=== PATIENT | male | born 1980 | race Hispanic/Latino ===

== ENCOUNTER 2020-10-25 18:32 | Emergency (ER) | payer OTHER ==
[~2020-10-25] VITALS: Ht 177.8 cm; Wt 94.3 kg
[2020-10-25] MEDS ORDERED: METFORMIN HCL500 MG PO (19:24)
[2020-10-25] MEDS ORDERED: GLIPIZIDE5 MG PO (19:24)
[2020-10-25] MEDS ORDERED: PANTOPRAZOLE SO40 MG PO (22:42)
[2020-10-25 22:58] VITALS: BP 123/81
== END 2020-10-25 22:58 | disposition home or self-care (01) ==
LOC: FSED 18:38
DX: R07.89 Other chest pain (principal); E11.65 Type 2 diabetes mellitus with hyperglycemia; K21.9 Gastro-esophageal reflux disease without esophagitis
CPT/HCPCS: 71046; 80048; 80076; 81003; 82553; 84484; 85025; 93005; 99284

== ENCOUNTER 2021-03-03 11:45 | Inpatient (IN) | payer OTHER ==
[~2021-03-03] VITALS: Ht 177.8 cm; Wt 99.8 kg
[~2021-03-03 11:45] MED LIST: GLIPIZIDE5 MG PO; METFORMIN HCL500 MG PO; PANTOPRAZOLE SO40 MG PO
[2021-03-03] MEDS ORDERED: SODIUM CHLORIDE 0.9% 1000ML 1,000 ML IV SCH (12:30)
[2021-03-03] MEDS ORDERED: IOPAMIDOL 370 MG/ML 200 ML INFUS..BTL INJ ONE (12:49)
[2021-03-03] MEDS ORDERED: SODIUM CHLORIDE 0.9% 50ML 50 ML ONE (12:49)
[2021-03-03] MEDS ORDERED: ENOXAPARIN SODIUM INJ 100 MG/ML SYR SC STA (13:21)
[2021-03-03] MEDS ORDERED: ENOXAPARIN SODIUM INJ 100 MG/ML SYR SC ONE (13:36)
[2021-03-03] MEDS ORDERED: ASPIRIN 81 MG CHEW TAB ONE (14:15)
[2021-03-03] MEDS ORDERED: ASPIRIN 81 MG CHEW TAB PO ONE (15:00)
[2021-03-03 17:12] VITALS: BP 155/96
[2021-03-03 17:30] VITALS: BP 155/96
[2021-03-03] MEDS: SODIUM CHLORIDE 0.9% 1000ML 1,000 ML IV SCH (18:36)
[2021-03-03] MEDS: METOPROLOL TARTRATE 25 MG TAB PO SCH (18:37)
[2021-03-03] MEDS ORDERED: ACETYLCYSTEINE 200 MG/1 ML 10ML VIAL PO STA (18:42)
[2021-03-03] MEDS: ACETYLCYSTEINE 20% INHAL SOLN 30 ML VIAL INH SCH (19:00)
[2021-03-03] MEDS ORDERED: ACETYLCYSTEINE 200 MG/ML 4ML VIAL ONE (19:20)
[2021-03-03 19:42] VITALS: BP 136/89
[2021-03-03 20:40] VITALS: BP 136/89
[2021-03-03] MEDS: INSULIN LISPRO 100 UNIT/1 ML 3ML VIAL SQ SCH (20:40)
[2021-03-04 00:45] VITALS: BP 132/81
[2021-03-04] MEDS: SODIUM CHLORIDE 0.9% 1000ML 1,000 ML IV SCH (03:08)
[2021-03-04 04:14] LABS: CREATINE KINASE MB 2.9 ng/mL (0-5.0)
[2021-03-04 04:59] VITALS: BP 119/78
[2021-03-04] MEDS ORDERED: ACETAMINOPHEN 325 MG TAB PO PRN (05:30)
[2021-03-04 05:42] LABS: BASOPHILS # (AUTO) 0.1 (0.0-0.1); BASOPHILS % 0.6 % (0.0-1.0); EOSINOPHILS # (AUTO) 0.5 (0.0-0.4); EOSINOPHILS % 6.8 % (0.0-6.0); HEMATOCRIT 29.6 % (38.2-49.6); HEMOGLOBIN 9.9 g/dL (14.0-18.0); LYMPHOCYTES # (AUTO) 1.3 (1.0-3.2); LYMPHOCYTES % 16.6 % (18.0-39.1); MEAN CORPUSCULAR HEMOGLOBIN 28.7 pg (28-32); MEAN CORPUSCULAR HGB CONC 33.4 g/dL (31-35); MEAN CORPUSCULAR VOLUME 85.8 fL (81-99); MONOCYTES % 12.1 % (4.4-11.3); NEUTROPHILS % 63.5 % (38.7-80.0); PLATELET COUNT 397 x10e3/uL (140-360); RED BLOOD COUNT 3.45 x10e6/uL (4.3-5.7); RED CELL DISTRIBUTION WIDTH 12.9 % (11.7-14.4)
[2021-03-04] MEDS ORDERED: LEVOTHYROXINE SODIUM 50 MCG TAB PO SCH (06:00)
[2021-03-04] MEDS: ACETYLCYSTEINE 20% INHAL SOLN 30 ML VIAL INH SCH (06:43)
[2021-03-04 07:21] LABS: ALBUMIN 1.6 g/dL (3.5-5.0); ANION GAP 15.6 mmol/L (8-16); CALCIUM 8.9 mg/dL (8.4-10.2); CREATININE, SERUM 1.9 mg/dL (0.72-1.25); MAGNESIUM 1.7 MG/DL (1.3-2.1); POTASSIUM 3.6 mmol/L (3.5-5.1)
[2021-03-04] MEDS: INSULIN LISPRO 100 UNIT/1 ML 3ML VIAL SQ SCH ×3 (07:30→17:10)
[2021-03-04 07:42] LABS: BILIRUBIN,DIRECT 0.1 mg/dL (0.0-0.5); CHOL/HDL RATIO 4.9 (3.9-4.7)
[2021-03-04 08:04] LABS: THYROID STIMULATING HORMONE 3.612 uIU/mL (0.350-4.940)
[2021-03-04 08:10] VITALS: BP 125/71
[2021-03-04 08:18] VITALS: BP 125/71
[2021-03-04] MEDS ORDERED: ACETYLCYSTEINE 200 MG/1 ML 10ML VIAL PO SCH (09:00)
[2021-03-04] MEDS: METOPROLOL TARTRATE 25 MG TAB PO SCH ×2 (09:14→17:18)
[2021-03-04] MEDS ORDERED: LEVOTHYROXINE25 MC1 PO (09:21)
[2021-03-04] MEDS ORDERED: JANUMET 50-5001 EACH PO (09:21)
[2021-03-04] MEDS ORDERED: CRESTOR10 MG PO (09:21)
[2021-03-04] MEDS ORDERED: NEXIUM PO (09:22)
[2021-03-04] MEDS ORDERED: LACTATED RINGER'S 1,000 ML INJ ONE (10:30)
[2021-03-04] MEDS ORDERED: IRON SUCROSE 100 MG in SODIUM CHLORIDE 0.9% 100 ML 100 ML IV SCH (11:00)
[2021-03-04 12:03] VITALS: BP 130/80
[2021-03-04 16:12] VITALS: BP 136/88
[2021-03-04] MEDS ORDERED: ACETYLCYSTEINE 200 MG/ML 4ML VIAL PO SCH (17:00)
[2021-03-04] MEDS ORDERED: COLCHICINE 0.6 MG TAB PO SCH (17:00)
== END 2021-03-04 18:48 | disposition home or self-care (01) | DRG 315 ==
LOC: FSED 11:50 → ERHOLD 14:12 → MED/SURG2 15:55
PROVIDERS: ADMIT Internal Medicine; ATTEND Internal Medicine
DX: I31.9 Disease of pericardium, unspecified (principal); N17.9 Acute kidney failure, unspecified; I12.9 Hypertensive chronic kidney disease with stage 1 through stage 4 chronic kidney disease, or unspecified chronic kidney disease; E11.22 Type 2 diabetes mellitus with diabetic chronic kidney disease; Z79.899 Other long term (current) drug therapy; E03.9 Hypothyroidism, unspecified; N18.30 Chronic kidney disease, stage 3 unspecified; Z20.822 Contact with and (suspected) exposure to COVID-19; D50.9 Iron deficiency anemia, unspecified
CPT/HCPCS: 36415; 71045; 71260; 80048; 80061; 80076; 82550; 82553; 82948; 83036; 83540; 83735; 84443; 84466; 84484; 85025; 93005; 93306; 94799; 96360; 99284; J1650; J1756; J7030; J7121; Q9967; U0002

== ENCOUNTER 2021-04-21 23:44 | Inpatient (IN) | payer OTHER ==
[~2021-04-21] VITALS: Ht 177.8 cm; Wt 109.8 kg
[~2021-04-21 23:44] MED LIST changes: +CRESTOR10 MG PO; +JANUMET 50-5001 EACH PO; +LEVOTHYROXINE25 MC1 PO; +NEXIUM PO
[2021-04-22] VITALS (11 sets, daily range): BP systolic 94–133; BP diastolic 61–79
[2021-04-22] MEDS ORDERED: ACETAMINOPHEN 325 MG TAB PO ONE (00:15)
[2021-04-22 00:18] LABS: BASOPHILS % 0.2 % (0.0-1.0); HEMATOCRIT 22.7 % (38.2-49.6); HEMOGLOBIN 7.5 g/dL (14.0-18.0); LYMPHOCYTES # (AUTO) 0.6 (1.0-3.2); LYMPHOCYTES % 4.7 % (18.0-39.1); MEAN CORPUSCULAR HEMOGLOBIN 27.6 pg (28-32); MEAN CORPUSCULAR VOLUME 83.5 fL (81-99); MONOCYTES # (AUTO) 1.4 (0.2-0.8); MONOCYTES % 10.2 % (4.4-11.3); NEUTROPHILS # (AUTO) 11.2 (2.1-6.9); NEUTROPHILS % 84.1 % (38.7-80.0); PLATELET COUNT 636 x10e3/uL (140-360); RED BLOOD COUNT 2.72 x10e6/uL (4.3-5.7); RED CELL DISTRIBUTION WIDTH 13.9 % (11.7-14.4)
[2021-04-22 00:32] LABS: ANION GAP 22.7 mmol/L (8-16); CALCIUM 7.8 mg/dL (8.4-10.2); CREATININE, SERUM 7.47 mg/dL (0.72-1.25)
[2021-04-22 00:34] LABS: POTASSIUM 2.7 mmol/L (3.5-5.1)
[2021-04-22 00:43] LABS: CREATINE KINASE MB 1.1 ng/mL (0-5.0)
[2021-04-22 01:16] LABS: CLARITY,URINE CLOUDY (CLEAR); COLOR,URINE YELLOW (YELLOW); LEUKOCYTE ESTERASE ,URINE NEGATIVE (NEGATIVE); NITRITE,URINE NEGATIVE (NEGATIVE)
[2021-04-22 01:17] LABS: KETONES,URINE NEGATIVE (NEGATIVE); PROTEIN,URINE DIPSTICK >=300 (NEGATIVE); URINE UROBILINOGEN 0.2 mg/dL (0.2 - 1)
[2021-04-22 01:20] LABS: AMORPHOUS SEDIMENT,URINE MODERATE (FEW); BACTERIA,URINE MANY /HPF; EPITHELIAL CELLS,URINE FEW /LPF; RBC,URINE >50 /HPF (0-5)
[2021-04-22 01:22] LABS: ABG HCO3 16 mmol/L (22-26); ABG PCO2 25 mmHg (35-45); ABG PH 7.42 (7.35-7.45); ABG PO2 92 mmHg (80-105); ABG TCO2 17
[2021-04-22] MEDS: CEFTRIAXONE 1 GM in SODIUM CHLORIDE 0.9% 50ML 50 ML IV SCH ×2 (01:34→01:35)
[2021-04-22] MEDS ORDERED: POTASSIUM CHLORIDE 20 MEQ TAB CR PO STA (01:35)
[2021-04-22] MEDS ORDERED: SODIUM CHLORIDE 0.9% 500ML 500 ML IV ONE (01:45)
[2021-04-22] MEDS ORDERED: ONDANSETRON HCL INJ 2MG/ML 2ML 2 MG/ML VIAL IV PRN (02:00)
[2021-04-22] MEDS ORDERED: INSULIN REGULAR, HUMAN 100 UNIT/1 ML SQ ONE (02:00)
[2021-04-22] MEDS ORDERED: DEXTROSE 50% SYRINGE 50 ML IV PRN (02:00)
[2021-04-22] MEDS: SODIUM CHLORIDE 0.9% 1000ML 1,000 ML IV SCH ×2 (02:11→11:45)
[2021-04-22] MEDS ORDERED: PIOGLITAZONE15 MG PO (03:46)
[2021-04-22] MEDS ORDERED: JARDIANCE10 MG PO (03:46)
[2021-04-22] MEDS ORDERED: LEVOTHYROXINE50 MCG PO (03:46)
[2021-04-22] MEDS: INSULIN REGULAR, HUMAN 100 UNIT/1 ML SQ SCH ×4 (07:30→20:55)
[2021-04-22 07:42] LABS: ANION GAP 18.1 mmol/L (8-16); CREATININE, SERUM 7.77 mg/dL (0.72-1.25); POTASSIUM 3.1 mmol/L (3.5-5.1)
[2021-04-22 07:55] LABS: CALCIUM 7.8 mg/dL (8.4-10.2)
[2021-04-22 10:27] LABS: BASOPHILS # (AUTO) 0.1 (0.0-0.1); BASOPHILS % 0.4 % (0.0-1.0); EOSINOPHILS # (AUTO) 0.1 (0.0-0.4); EOSINOPHILS % 0.8 % (0.0-6.0); LYMPHOCYTES # (AUTO) 0.8 (1.0-3.2); MEAN CORPUSCULAR HEMOGLOBIN 27.8 pg (28-32); MEAN CORPUSCULAR HGB CONC 33.3 g/dL (31-35); MEAN CORPUSCULAR VOLUME 83.3 fL (81-99); MONOCYTES # (AUTO) 1.5 (0.2-0.8); MONOCYTES % 12.8 % (4.4-11.3); NEUTROPHILS # (AUTO) 9.1 (2.1-6.9); PLATELET COUNT 647 x10e3/uL (140-360); RED BLOOD COUNT 2.45 x10e6/uL (4.3-5.7); RED CELL DISTRIBUTION WIDTH 13.9 % (11.7-14.4)
[2021-04-22 10:33] LABS: HEMOGLOBIN 6.8 g/dL (14.0-18.0)
[2021-04-22 10:34] LABS: HEMATOCRIT 20.4 % (38.2-49.6)
[2021-04-22 10:39] LABS: INR 1.2; PROTHROMBIN TIME 16.2 seconds (11.9-14.5)
[2021-04-22 10:40] LABS: PARTIAL THROMBOPLASTIN TIME 43.3 seconds (23.8-35.5)
[2021-04-22] MEDS ORDERED: SODIUM CHLORIDE 0.9% 250ML 250 ML IV ONE (11:30)
[2021-04-22] MEDS ORDERED: HEPARIN SOD (PORCINE) 1000 UNIT/ML SDV ONE (11:55)
[2021-04-22 11:56] LABS: ALBUMIN 1.3 g/dL (3.5-5.0); BILIRUBIN,DIRECT 0.1 mg/dL (0.0-0.5); MAGNESIUM 1.9 MG/DL (1.3-2.1)
[2021-04-22] MEDS ORDERED: POTASSIUM CHLORIDE 20 MEQ TAB CR PO ONE (12:00)
[2021-04-22] MEDS ORDERED: IRON SUCROSE 100 MG in SODIUM CHLORIDE 0.9% 100 ML 100 ML IV SCH (14:00)
[2021-04-22] MEDS ORDERED: HEPARIN SOD (PORCINE) 1000 UNIT/ML SDV IV PRN (14:00)
[2021-04-22] MEDS ORDERED: SODIUM CHLORIDE 0.9% 1000ML 2,000 ML IV PRN (14:00)
[2021-04-22] MEDS: ACETAMINOPHEN 325 MG TAB PO PRN (14:34)
[2021-04-22 15:55] LABS: HIV 1&2 AB SCREEN NON-REACTIVE (NONREACTIVE)
[2021-04-22] MEDS: SODIUM BICARBONATE 650 MG TAB PO SCH (16:55)
[2021-04-22] MEDS: IRON SUCROSE 100 MG in SODIUM CHLORIDE 0.9% 100 ML 100 ML IV SCH (20:44)
[2021-04-23] VITALS (10 sets, daily range): BP systolic 98–129; BP diastolic 72–85
[2021-04-23] MEDS ORDERED: BISACODYL 5 MG TAB EC PO ONE ×4 (01:00→23:30)
[2021-04-23 01:57] LABS: BASOPHILS % 0.3 % (0.0-1.0); EOSINOPHILS # (AUTO) 0.2 (0.0-0.4); EOSINOPHILS % 1.7 % (0.0-6.0); HEMATOCRIT 24.3 % (38.2-49.6); HEMOGLOBIN 8.2 g/dL (14.0-18.0); LYMPHOCYTES # (AUTO) 0.9 (1.0-3.2); LYMPHOCYTES % 7.4 % (18.0-39.1); MEAN CORPUSCULAR HEMOGLOBIN 27.7 pg (28-32); MEAN CORPUSCULAR HGB CONC 33.7 g/dL (31-35); MEAN CORPUSCULAR VOLUME 82.1 fL (81-99); MONOCYTES # (AUTO) 1.5 (0.2-0.8); MONOCYTES % 12.4 % (4.4-11.3); NEUTROPHILS % 77.3 % (38.7-80.0); PLATELET COUNT 532 x10e3/uL (140-360); RED BLOOD COUNT 2.96 x10e6/uL (4.3-5.7); RED CELL DISTRIBUTION WIDTH 13.8 % (11.7-14.4)
[2021-04-23 02:16] LABS: ALBUMIN 1.3 g/dL (3.5-5.0); ALBUMIN/GLOBULIN RATIO 0.3 (0.8-2.0); ANION GAP 17.7 mmol/L (8-16); CALCIUM 7.5 mg/dL (8.4-10.2); CREATININE, SERUM 6.81 mg/dL (0.72-1.25)
[2021-04-23 02:17] LABS: POTASSIUM 2.7 mmol/L (3.5-5.1)
[2021-04-23] MEDS ORDERED: POTASSIUM CHLORIDE 20 MEQ TAB CR PO ONE (02:45)
[2021-04-23 03:05] LABS: CREATININE,URINE RANDOM 170.67 mg/dL (63-166)
[2021-04-23 06:41] LABS: BASOPHILS # (AUTO) 0.1 (0.0-0.1); BASOPHILS % 0.4 % (0.0-1.0); EOSINOPHILS # (AUTO) 0.2 (0.0-0.4); EOSINOPHILS % 1.7 % (0.0-6.0); HEMATOCRIT 24.1 % (38.2-49.6); LYMPHOCYTES # (AUTO) 0.7 (1.0-3.2); MEAN CORPUSCULAR HEMOGLOBIN 27.6 pg (28-32); MEAN CORPUSCULAR HGB CONC 33.2 g/dL (31-35); MEAN CORPUSCULAR VOLUME 83.1 fL (81-99); MONOCYTES # (AUTO) 1.3 (0.2-0.8); MONOCYTES % 11.4 % (4.4-11.3); NEUTROPHILS # (AUTO) 9.2 (2.1-6.9); NEUTROPHILS % 79.6 % (38.7-80.0); PLATELET COUNT 600 x10e3/uL (140-360); RED CELL DISTRIBUTION WIDTH 13.9 % (11.7-14.4)
[2021-04-23] MEDS: INSULIN REGULAR, HUMAN 100 UNIT/1 ML SQ SCH ×4 (07:30→21:05)
[2021-04-23] MEDS: CEFTRIAXONE 1 GM in SODIUM CHLORIDE 0.9% 50ML 50 ML IV SCH (08:10)
[2021-04-23] MEDS: SODIUM BICARBONATE 650 MG TAB PO SCH ×2 (08:10→17:00)
[2021-04-23] MEDS ORDERED: HEPARIN SOD (PORCINE) 1000 UNIT/ML SDV IV PRN (10:45)
[2021-04-23] MEDS: METOPROLOL TARTRATE 25 MG TAB PO SCH (18:03)
[2021-04-23] MEDS: IRON SUCROSE 100 MG in SODIUM CHLORIDE 0.9% 100 ML 100 ML IV SCH (21:04)
[2021-04-24] VITALS (8 sets, daily range): BP systolic 92–127; BP diastolic 71–89
[2021-04-24] MEDS: LEVOTHYROXINE SODIUM 50 MCG TAB PO SCH (05:10)
[2021-04-24 05:25] LABS: BASOPHILS # (AUTO) 0.1 (0.0-0.1); BASOPHILS % 0.4 % (0.0-1.0); EOSINOPHILS # (AUTO) 0.1 (0.0-0.4); EOSINOPHILS % 0.8 % (0.0-6.0); HEMATOCRIT 25.6 % (38.2-49.6); HEMOGLOBIN 8.4 g/dL (14.0-18.0); LYMPHOCYTES # (AUTO) 0.6 (1.0-3.2); LYMPHOCYTES % 3.9 % (18.0-39.1); MEAN CORPUSCULAR HEMOGLOBIN 27.8 pg (28-32); MEAN CORPUSCULAR HGB CONC 32.8 g/dL (31-35); MEAN CORPUSCULAR VOLUME 84.8 fL (81-99); MONOCYTES # (AUTO) 1.4 (0.2-0.8); MONOCYTES % 9.3 % (4.4-11.3); NEUTROPHILS # (AUTO) 12.3 (2.1-6.9); NEUTROPHILS % 84.9 % (38.7-80.0); PLATELET COUNT 451 x10e3/uL (140-360); RED BLOOD COUNT 3.02 x10e6/uL (4.3-5.7)
[2021-04-24 06:57] LABS: ALBUMIN 1.2 g/dL (3.5-5.0); ALBUMIN/GLOBULIN RATIO 0.2 (0.8-2.0); ANION GAP 14.6 mmol/L (8-16); CALCIUM 7.8 mg/dL (8.4-10.2); CREATININE, SERUM 5.64 mg/dL (0.72-1.25)
[2021-04-24 07:04] LABS: POTASSIUM 2.6 mmol/L (3.5-5.1)
[2021-04-24] MEDS: INSULIN REGULAR, HUMAN 100 UNIT/1 ML SQ SCH ×4 (07:30→21:00)
[2021-04-24] MEDS ORDERED: POTASSIUM CHLORIDE 20 MEQ TAB CR PO ONE (08:30)
[2021-04-24] MEDS: CEFTRIAXONE 1 GM in SODIUM CHLORIDE 0.9% 50ML 50 ML IV SCH (08:52)
[2021-04-24] MEDS: SODIUM BICARBONATE 650 MG TAB PO SCH ×2 (08:53→15:55)
[2021-04-24] MEDS: METOPROLOL TARTRATE 25 MG TAB PO SCH ×2 (08:53→17:00)
[2021-04-24] MEDS ORDERED: ALBUMIN 25% 12.5GM 0.25 GM/ML BTL IV PRN (10:15)
[2021-04-24] MEDS ORDERED: ALBUMIN 25% 12.5GM 50ML 100 ML IV ONE (10:20)
[2021-04-24] MEDS ORDERED: POTASSIUM CHLORIDE 10MEQ EA PO ONE (14:00)
[2021-04-24] MEDS: IRON SUCROSE 100 MG in SODIUM CHLORIDE 0.9% 100 ML 100 ML IV SCH (21:13)
[2021-04-25] VITALS (12 sets, daily range): BP systolic 105–126; BP diastolic 65–84
[2021-04-25] MEDS: LEVOTHYROXINE SODIUM 50 MCG TAB PO SCH (05:57)
[2021-04-25] MEDS: INSULIN REGULAR, HUMAN 100 UNIT/1 ML SQ SCH ×4 (07:30→20:48)
[2021-04-25] MEDS: METOPROLOL TARTRATE 25 MG TAB PO SCH ×2 (08:08→17:20)
[2021-04-25] MEDS: CEFTRIAXONE 1 GM in SODIUM CHLORIDE 0.9% 50ML 50 ML IV SCH (08:08)
[2021-04-25] MEDS: ACETAMINOPHEN 325 MG TAB PO PRN (08:08)
[2021-04-25] MEDS: SODIUM BICARBONATE 650 MG TAB PO SCH ×2 (08:08→17:20)
[2021-04-25] MEDS ORDERED: LIDOCAINE HCL 1% LOCAL INJ 20 ML VIAL ONE ×2 (11:14→15:29)
[2021-04-25] MEDS ORDERED: SODIUM CHLORIDE 0.9% 250ML 250 ML ONE (11:15)
[2021-04-25] MEDS ORDERED: FENTANYL CITRATE/PF 100MCG/2 ML INJ ONE (14:07)
[2021-04-25] MEDS ORDERED: MIDAZOLAM HCL 2 MG/2 ML VIAL ONE (14:07)
[2021-04-25] MEDS ORDERED: HEPARIN SOD (PORCINE) 1000 UNIT/ML SDV ONE (14:07)
[2021-04-25 18:04] LABS: BASOPHILS % 0.3 % (0.0-1.0); EOSINOPHILS # (AUTO) 0.2 (0.0-0.4); EOSINOPHILS % 1.2 % (0.0-6.0); HEMATOCRIT 27.5 % (38.2-49.6); HEMOGLOBIN 9.1 g/dL (14.0-18.0); LYMPHOCYTES # (AUTO) 0.7 (1.0-3.2); LYMPHOCYTES % 5.4 % (18.0-39.1); MEAN CORPUSCULAR HEMOGLOBIN 27.9 pg (28-32); MEAN CORPUSCULAR HGB CONC 33.1 g/dL (31-35); MEAN CORPUSCULAR VOLUME 84.4 fL (81-99); MONOCYTES # (AUTO) 1.2 (0.2-0.8); MONOCYTES % 8.7 % (4.4-11.3); NEUTROPHILS # (AUTO) 11.5 (2.1-6.9); NEUTROPHILS % 83.5 % (38.7-80.0); PLATELET COUNT 461 x10e3/uL (140-360); RED BLOOD COUNT 3.26 x10e6/uL (4.3-5.7); RED CELL DISTRIBUTION WIDTH 14.1 % (11.7-14.4)
[2021-04-25 18:23] LABS: ANION GAP 12.9 mmol/L (8-16); CALCIUM 8.4 mg/dL (8.4-10.2); CREATININE, SERUM 6.18 mg/dL (0.72-1.25); POTASSIUM 3.9 mmol/L (3.5-5.1)
[2021-04-25] MEDS ORDERED: BISACODYL 5 MG TAB EC PO ONE ×2 (19:15→20:00)
[2021-04-25] MEDS ORDERED: CITRATE OF MAGNESIA 300ML BOTTLE PO ONE (23:00)
[2021-04-26] VITALS (7 sets, daily range): BP systolic 103–130; BP diastolic 58–80
[2021-04-26] MEDS: ACETAMINOPHEN 325 MG TAB PO PRN (03:54)
[2021-04-26] MEDS: LEVOTHYROXINE SODIUM 50 MCG TAB PO SCH (05:25)
[2021-04-26] MEDS ORDERED: CITRATE OF MAGNESIA 300ML BOTTLE PO ONE ×2 (07:00→23:30)
[2021-04-26] MEDS: INSULIN REGULAR, HUMAN 100 UNIT/1 ML SQ SCH ×4 (07:30→20:19)
[2021-04-26] MEDS ORDERED: SODIUM CHLORIDE 0.9% 50ML 50 ML ONE (07:54)
[2021-04-26] MEDS: METOPROLOL TARTRATE 25 MG TAB PO SCH ×2 (09:00→17:00)
[2021-04-26] MEDS: CEFTRIAXONE 1 GM in SODIUM CHLORIDE 0.9% 50ML 50 ML IV SCH (09:00)
[2021-04-26] MEDS: SODIUM BICARBONATE 650 MG TAB PO SCH ×2 (09:00→17:00)
[2021-04-26] MEDS ORDERED: BISACODYL 5 MG TAB EC PO ONE ×3 (21:15→22:15)
[2021-04-27] VITALS (10 sets, daily range): BP systolic 95–135; BP diastolic 55–86
[2021-04-27] MEDS ORDERED: CITRATE OF MAGNESIA 300ML BOTTLE PO ONE (05:00)
[2021-04-27] MEDS: LEVOTHYROXINE SODIUM 50 MCG TAB PO SCH (06:00)
[2021-04-27 06:44] LABS: BASOPHILS # (AUTO) 0.1 (0.0-0.1); BASOPHILS % 0.4 % (0.0-1.0); EOSINOPHILS # (AUTO) 0.3 (0.0-0.4); EOSINOPHILS % 2.5 % (0.0-6.0); HEMOGLOBIN 8.5 g/dL (14.0-18.0); LYMPHOCYTES % 8.4 % (18.0-39.1); MEAN CORPUSCULAR HEMOGLOBIN 27.7 pg (28-32); MEAN CORPUSCULAR HGB CONC 30.4 g/dL (31-35); MEAN CORPUSCULAR VOLUME 91.2 fL (81-99); MONOCYTES # (AUTO) 1.1 (0.2-0.8); MONOCYTES % 9.4 % (4.4-11.3); NEUTROPHILS # (AUTO) 8.8 (2.1-6.9); NEUTROPHILS % 78.4 % (38.7-80.0); PLATELET COUNT 356 x10e3/uL (140-360); RED BLOOD COUNT 3.07 x10e6/uL (4.3-5.7)
[2021-04-27 07:08] LABS: ALBUMIN 1.3 g/dL (3.5-5.0); ALBUMIN/GLOBULIN RATIO 0.2 (0.8-2.0); ANION GAP 14.2 mmol/L (8-16); CALCIUM 8.4 mg/dL (8.4-10.2); CREATININE, SERUM 5.27 mg/dL (0.72-1.25); POTASSIUM 3.2 mmol/L (3.5-5.1)
[2021-04-27] MEDS: INSULIN REGULAR, HUMAN 100 UNIT/1 ML SQ SCH ×4 (07:30→20:50)
[2021-04-27] MEDS ORDERED: SODIUM CHLORIDE 0.9% 50ML 50 ML ONE (08:06)
[2021-04-27] MEDS: METOPROLOL TARTRATE 25 MG TAB PO SCH ×2 (09:00→16:57)
[2021-04-27] MEDS: CEFTRIAXONE 1 GM in SODIUM CHLORIDE 0.9% 50ML 50 ML IV SCH (09:00)
[2021-04-27] MEDS: SODIUM BICARBONATE 650 MG TAB PO SCH ×2 (09:00→16:57)
[2021-04-27] MEDS ORDERED: POTASSIUM CHLORIDE 10MEQ/100ML 100 ML INJ ONE (09:30)
[2021-04-27] MEDS ORDERED: POTASSIUM CHLORIDE 20MEQ/100ML 200 ML IV ONE (09:30)
[2021-04-27] MEDS ORDERED: PROPOFOL IV EMULSION 10 MG/ML 20 ML VIAL ONE (12:43)
[2021-04-27] MEDS ORDERED: FENTANYL CITRATE/PF 100MCG/2 ML INJ ONE (13:14)
[2021-04-27] MEDS ORDERED: MIDAZOLAM HCL 5 MG/ML VIAL ONE (13:14)
[2021-04-27] MEDS ORDERED: MIDAZOLAM HCL 2 MG/2 ML VIAL ONE (13:14)
[2021-04-27] MEDS ORDERED: SODIUM CHLORIDE 0.9% 500ML 500 ML ONE (13:15)
[2021-04-27] MEDS: ACETAMINOPHEN 325 MG TAB PO PRN (20:06)
[2021-04-28] MEDS: LEVOTHYROXINE SODIUM 50 MCG TAB PO SCH (05:26)
[2021-04-28 06:39] VITALS: BP 124/61
[2021-04-28] MEDS: INSULIN REGULAR, HUMAN 100 UNIT/1 ML SQ SCH ×2 (07:30→11:30)
[2021-04-28 07:58] VITALS: BP 109/57
[2021-04-28 08:51] VITALS: BP 109/57
[2021-04-28] MEDS: METOPROLOL TARTRATE 25 MG TAB PO SCH ×2 (09:00→15:51)
[2021-04-28] MEDS: CEFTRIAXONE 1 GM in SODIUM CHLORIDE 0.9% 50ML 50 ML IV SCH (09:00)
[2021-04-28] MEDS: SODIUM BICARBONATE 650 MG TAB PO SCH ×2 (09:00→15:51)
[2021-04-28 12:10] VITALS: BP 121/69
[2021-04-28 12:14] LABS: BASOPHILS % 0.4 % (0.0-1.0); EOSINOPHILS # (AUTO) 0.3 (0.0-0.4); EOSINOPHILS % 2.5 % (0.0-6.0); HEMATOCRIT 26.7 % (38.2-49.6); HEMOGLOBIN 8.4 g/dL (14.0-18.0); LYMPHOCYTES # (AUTO) 0.8 (1.0-3.2); LYMPHOCYTES % 6.7 % (18.0-39.1); MEAN CORPUSCULAR HEMOGLOBIN 27.6 pg (28-32); MEAN CORPUSCULAR HGB CONC 31.5 g/dL (31-35); MEAN CORPUSCULAR VOLUME 87.8 fL (81-99); MONOCYTES # (AUTO) 0.9 (0.2-0.8); MONOCYTES % 8.4 % (4.4-11.3); NEUTROPHILS % 80.7 % (38.7-80.0); PLATELET COUNT 364 x10e3/uL (140-360); RED BLOOD COUNT 3.04 x10e6/uL (4.3-5.7); RED CELL DISTRIBUTION WIDTH 13.8 % (11.7-14.4)
[2021-04-28] MEDS ORDERED: SODIUM BICARBO650 MG PO (14:01)
[2021-04-28] MEDS ORDERED: LOPRESSOR25 MG PO (14:01)
[2021-05-01 05:11] LABS: ENDOMYSIAL ANTIBODIES, IGA Negative (Negative)
== END 2021-04-28 16:13 | disposition home or self-care (01) | DRG 673 ==
LOC: ER 23:58 → ERHOLD 04-22 01:48 → MED/SURG2 04-22 03:23
PROVIDERS: ADMIT Internal Medicine; ATTEND Internal Medicine
PROC: 02HV33Z Insertion of Infusion Device into Superior Vena Cava, Percutaneous Approach (ICD-10-PCS; principal; 2021-04-22)
PROC: 5A1D70Z Performance of Urinary Filtration, Intermittent, Less than 6 Hours Per Day (ICD-10-PCS; 2021-04-22)
PROC: 30243N1 Transfusion of Nonautologous Red Blood Cells into Central Vein, Percutaneous Approach (ICD-10-PCS; 2021-04-22)
PROC: 0JH63XZ Insertion of Tunneled Vascular Access Device into Chest Subcutaneous Tissue and Fascia, Percutaneous Approach (ICD-10-PCS; 2021-04-25)
PROC: 0TB13ZX Excision of Left Kidney, Percutaneous Approach, Diagnostic (ICD-10-PCS; 2021-04-25)
PROC: 02HV33Z Insertion of Infusion Device into Superior Vena Cava, Percutaneous Approach (ICD-10-PCS; 2021-04-25)
PROC: 0DBH8ZZ Excision of Cecum, Via Natural or Artificial Opening Endoscopic (ICD-10-PCS; 2021-04-27)
PROC: 0DBL8ZZ Excision of Transverse Colon, Via Natural or Artificial Opening Endoscopic (ICD-10-PCS; 2021-04-27)
PROC: 0DB78ZX Excision of Stomach, Pylorus, Via Natural or Artificial Opening Endoscopic, Diagnostic (ICD-10-PCS; 2021-04-27)
DX: N17.9 Acute kidney failure, unspecified (principal); K29.71 Gastritis, unspecified, with bleeding; E87.1 Hypo-osmolality and hyponatremia; I12.0 Hypertensive chronic kidney disease with stage 5 chronic kidney disease or end stage renal disease; E03.9 Hypothyroidism, unspecified; D50.9 Iron deficiency anemia, unspecified; E87.6 Hypokalemia; J32.9 Chronic sinusitis, unspecified; K20.90 Esophagitis, unspecified without bleeding; K63.5 Polyp of colon; K64.8 Other hemorrhoids; E11.22 Type 2 diabetes mellitus with diabetic chronic kidney disease; N18.32 Chronic kidney disease, stage 3b; R12 Heartburn; N18.6 End stage renal disease; Z99.2 Dependence on renal dialysis; R50.9 Fever, unspecified; R00.0 Tachycardia, unspecified
CPT/HCPCS: 36415; 36556; 36558; 36600; 43239; 45385; 50200; 51700; 71045; 74470; 76770; 76937; 76942; 77001; 80048; 80053; 80076; 81001; 82270; 82550; 82553; 82570; 82607; 82746; 82784; 82805; 82948; 83036; 83516; 83540; 83605; 83735; 83880; 84156; 84443; 84466; 84484; 85025; 85610; 85651; 85730; 86021; 86039; 86160; 86225; 86235; 86255; 86256; 86376; 86431; 86704; 86706; 86850; 86900; 86920; 87040; 87086; 87340; 87390; 88305; 88312; 90962; 93005; 94799; 96372; 99283; C1752; C1769; C1892; G0433; G0435; J0696; J1644; J1756; J1817; J2001; J2250; J3010; J7030; J7040; J7050; P9016; U0002